=== PATIENT | female | born 1965 | race Caucasian/White ===

== ENCOUNTER 2017-07-30 08:00 | Outpatient (CLI) | payer BC ==
[2017-07-30 18:38] LABS: CHOL/HDL RATIO 3.6 (<4.4); CHOLESTEROL 214 mg/dL; GLUCOSE,FASTING 90 mg/dL (70-100); HDL CHOLESTEROL 60 mg/dL; LDL CHOLESTEROL,CALCULATED 133 mg/dL; LDL/HDL RATIO 2.2 (<4.4); VLDL CHOLESTEROL 21 mg/dL
== END 2017-07-30 08:01 | disposition home or self-care (01) ==
LOC: LAB.S 08:00
PROVIDERS: ATTEND Registered Nurse
DX: Z01.419 Encounter for gynecological examination (general) (routine) without abnormal findings (principal)
CPT/HCPCS: 36415; 80061; 82947; 84443

== ENCOUNTER 2018-11-17 14:16 | Emergency (ER) | payer BC ==
[2018-11-17 14:58] LABS: BILIRUBIN,URINE NEGATIVE (NEGATIVE); GLUCOSE, URINE (UA) NEGATIVE (NEGATIVE); KETONES,URINE (UA) TRACE mg/dL (NEGATIVE); LEUKOCYTE ESTERASE, URINE NEGATIVE (NEGATIVE); NITRITE,URINE NEGATIVE (NEGATIVE); OCCULT BLOOD,URINE NEGATIVE (NEGATIVE); PROTEIN,URINE NEGATIVE (NEGATIVE); UROBILINOGEN,URINE 0.2 (NORMAL) E.U./dL (NORMAL)
[2018-11-17 14:59] LABS: CLARITY,URINE CLEAR (CLEAR); HCG UR QUAL NEGATIVE
--- NOTE | 2018-11-17 14:59 | ED Physician Documentation ---
PD HPI ABD PAIN - Stated complaint Stated Complaint: ABD PX,FEMALE - Chief complaint Chief Complaint: Abd Pain - History obtained from History obtained from: Patient - History of Present Illness Timing - onset: How many hours ago (few), Today Timing - duration: Hours (few) Timing - details: Abrupt onset, Still present Quality: Cramping, Aching Location: Other (lower abd) Radiation: No: Lower back, Left flank, Right flank Improved by: Laying still Worsened by: Moving, Palpation Associated symptoms: Nausea. No: Fever, Vomiting, Diarrhea, Constipation, Dysuria, Vaginal bleeding Similar symptoms before: Diagnosis (ovarian cysts and endometriosis.) Review of Systems Constitutional: denies: Fever, Chills Nose: denies: Rhinorrhea / runny nose, Congestion Throat: denies: Sore throat Respiratory: denies: Cough GI: reports: Abdominal Pain, Nausea. denies: Abdominal Swelling, Vomiting, Diarrhea : denies: Dysuria, Frequency Neurologic: denies: Near syncope PD PAST MEDICAL HISTORY - Past Medical History [employer]: Endometriosis, Ovarian cysts - Past Surgical History /[employer]: Hysterectomy, Oophrectomy (right, with left ovary remaining) - Present Medications Home Medications: Ambulatory Orders Medication Instructions Recorded Confirmed Hydrocodone/Acetaminophen [[place] 1 each PO Q6H PRN #15 tablet 11/17/18 5-325 Tablet] Ondansetron Odt [Zofran] 4 mg TL Q6H PRN #10 tablet 11/17/18 - Allergies Allergies/Adverse Reactions: Allergies Allergy/AdvReac Type Severity Reaction Status Date / Time codeine Allergy Anaphylaxis Verified 11/17/18 14:32 PD ED PE NORMAL - Vitals Vital signs reviewed: Yes - General General: Alert and oriented X 3 - Cardiac Cardiac: RRR, No murmur - Respiratory Respiratory: Clear bilaterally - Abdomen Abdomen: Normal bowel sounds, Soft, Non distended, No organomegaly, Other (tender lower abd left and right, without guarding nor rebound. ) - Female Female : Deferred - Back Back: No CVA TTP - Derm Derm: Normal color, Warm and dry Results - Vitals Vitals: Vital Signs - 24 hr 11/17/18 11/17/18 11/17/18 14:28 17:27 19:00 Temperature 36.6 C Heart Rate 54 L 59 L 79 Respiratory 14 14 16 Rate Blood Pressure 108/64 140/74 H 125/76 O2 Saturation 100 100 99 Oxygen O2 Source Room air - Labs Labs: Laboratory Tests 11/17/18 14:37 Urine Color YELLOW Urine Clarity CLEAR Urine pH 6.0 Ur Specific [place] <=1.005 Urine Protein NEGATIVE Urine Glucose (UA) NEGATIVE Urine Ketones TRACE Urine Occult Blood NEGATIVE Urine Nitrite NEGATIVE Urine Bilirubin NEGATIVE Urine Urobilinogen 0.2 (NORMAL) Ur Leukocyte Esterase NEGATIVE Ur Microscopic Review NOT INDICATED Urine Culture Comments NOT INDICATED Urine HCG, Qual NEGATIVE PD MEDICAL DECISION MAKING - ED course Complexity details: reviewed results (hemorrhagic cysts on left ovary and some free fluid. So abrupt bleeding of cyst or is rupturing. Not significant amount of free fluid. ), considered differential, d/w patient Departure - Departure Disposition: 01 Home, Self Care Clinical Impression: Rupture of ovarian cyst Abdominal pain Qualifiers: Abdominal location: lower abdomen, unspecified Qualified Code(s): R10.30 - Lower abdominal pain, unspecified Condition: Stable Record reviewed to determine appropriate education?: Yes Instructions: ED Cyst Ovarian Follow-Up: Leelee Chang, SHARMIN, ALEE [Provider Admit Priv/Credential] - Prescriptions: Hydrocodone/Acetaminophen [[place] 5-325 Tablet] 1 each PO Q6H PRN #15 tablet PRN Reason: Pain Ondansetron Odt [Zofran] 4 mg TL Q6H PRN #10 tablet PRN Reason: Nausea / Vomiting Comments: Stay well-hydrated. Use some naproxen (Aleve) or ibuprofen 2-3 times a day for the next several days for inflammation and mild pain. Add Tylenol if needed. Add hydrocodone if needed for worse pain. Use ondansetron as needed for nausea. Follow-up with [facility] if not improved over the next few days. Your ultrasound shows some cysts with the largest at 3 x 2 cm. There is some free fluid with evidence of collapsing cyst on ultrasound suggesting some rupturing of a cyst. That is likely the cause of your pain. Discharge Date/Time: 11/17/18 19:01
[2018-11-17] MEDS ORDERED: NAPROXEN 250 MG TABLET PO STA (15:12)
[2018-11-17] MEDS ORDERED: MAG HYDROX/AL HYDROX/SIMETH 30 ML UDC PO STA (15:12)
[2018-11-17] MEDS ORDERED: HYDROcod/ACET 5/325 Prepack 4 PO STA (18:48)
--- NOTE | 2018-11-17 18:56 | Ultrasound Report ---
Reason: DIFFUSE PELVIC PAIN Procedure Date: 11/17/2018 Accession Number: [id number] / [id number] Procedure: US - Pelvic w/Doppler Complete CPT Code: FULL RESULT: EXAM: PELVIC ULTRASOUND WITH DOPPLERS CLINICAL HISTORY: Pelvic pain since yesterday with history of endometriosis and ovarian cysts. COMPARISON: None. TECHNIQUE: Realtime transabdominal imaging performed to identify the uterus and adnexa and as an overview of other pelvic structures, with static image documentation. Color flow imaging and Doppler spectral analysis was performed to evaluate blood flow to the ovaries given pelvic pain and clinical concern for ovarian torsion. FINDINGS: Uterus: Surgically absent. Right Ovary: Surgically absent. Left Ovary: 5.7 x 3.3 x 4.9 cm, volume 48 cc. Normal echotexture. Multiple complex cysts, some collapsing, largest 3.2 x 2.9 x 3.2 cm and 3.1 x 2.7 x 2.8 cm. Arterial and venous blood flow are present. PSV 15 cm/sec. RI 0.5. Adnexa are unremarkable. Free Fluid: Trace amount, likely physiologic. Other: None. IMPRESSION: 1. Complex left ovarian cysts, likely hemorrhagic. 2. Arterial and venous blood flow are present to the left ovary. 3. Surgically absent uterus and right ovary. RADIA
[2018-11-17 19:01] VITALS: BP 125/76
== END 2018-11-17 19:01 | disposition home or self-care (01) ==
LOC: ED 14:16
DX: N83.202 Unspecified ovarian cyst, left side (principal); Z90.710 Acquired absence of both cervix and uterus; Z90.721 Acquired absence of ovaries, unilateral
CPT/HCPCS: 76856; 81003; 81025; 93975; 99283; A9270; 81001; 87086

== ENCOUNTER 2018-12-19 15:46 | Outpatient (CLI) | payer BC ==
--- NOTE | 2018-12-20 07:03 | Ultrasound Report ---
Reason: F/U OVARIAN CYST Procedure Date: 12/19/2018 Accession Number: [id number] / [id number] Procedure: US - Pelvic Complete CPT Code: FULL RESULT: EXAM: PELVIC ULTRASOUND EXAM DATE: 12/19/2018 04:30 PM. CLINICAL HISTORY: Follow-up left ovarian cystic lesions. Patient refused transvaginal imaging. COMPARISON: 11/17/2018. TECHNIQUE: Realtime transabdominal pelvic scan performed to identify the uterus and adnexa and as an overview of other pelvic structures, with static image documentation. FINDINGS: Uterus: Surgically absent. Right Ovary: Surgically absent. Left Ovary: 4.6 x 3.5 x 4.0 cm, volume 34 cc. Previously 48 cc. A solitary simple cyst measures 3.6 x 2.8 x 3.7 cm. The marked complexity seen previously has resolved. A fine internal septation may be present. Previously multiple cysts were present, the largest measuring 3.2 and 3.1 cm. No hemorrhage or torsion evident. Free Fluid: None. Other: None. IMPRESSION: 1. Significant decrease in complexity of left ovarian cyst or cysts now with a single finely septated cyst present. Ovarian volume has decreased from 48-34 cc. 2. Status post hysterectomy and right oophorectomy. RADIA
== END 2018-12-19 15:47 | disposition home or self-care (01) ==
LOC: DI 15:46
PROVIDERS: ATTEND Obstetrics & Gynecology
DX: N83.202 Unspecified ovarian cyst, left side (principal); Z90.710 Acquired absence of both cervix and uterus; Z90.721 Acquired absence of ovaries, unilateral
CPT/HCPCS: 76856

== ENCOUNTER 2021-06-23 08:00 | Outpatient (CLI) | payer BC ==
[2021-06-23 15:01] LABS: BILIRUBIN,URINE NEGATIVE (NEGATIVE); GLUCOSE, URINE (UA) NEGATIVE (NEGATIVE); KETONES,URINE (UA) NEGATIVE (NEGATIVE); LEUKOCYTE ESTERASE, URINE NEGATIVE (NEGATIVE); NITRITE,URINE NEGATIVE (NEGATIVE); OCCULT BLOOD,URINE NEGATIVE (NEGATIVE); PH,URINE 6.5 PH (5.0-7.5); PROTEIN,URINE NEGATIVE (NEGATIVE); UROBILINOGEN,URINE 0.2 (NORMAL) E.U./dL (NORMAL)
[2021-06-23 15:06] LABS: CLARITY,URINE CLEAR (CLEAR)
[2021-06-23 15:23] LABS: BACTERIA,URINE Rare /HPF (None Seen); RBC,URINE 0-5 /HPF (0-5); SQUAMOUS EPITHELIAL CELL,UR RARE Squamous (<= Few)
== END 2021-06-23 23:59 | disposition home or self-care (01) ==
LOC: LAB.S 08:00
PROVIDERS: ATTEND Physician Assistant Medical
DX: R30.0 Dysuria (principal)
CPT/HCPCS: 81001; 87086